=== PATIENT | female | born 1990 | race Caucasian/White ===

== ENCOUNTER 2020-08-29 07:23 | Emergency (ER) | payer MEDICAID, OTHER ==
[~2020-08-29] VITALS: Ht 172.7 cm; Wt 88.6 kg
[2020-08-29 07:37] VITALS: BP 135/87
== END 2020-08-29 09:53 | disposition home or self-care (01) ==
LOC: ER 07:23
DX: U07.1 COVID-19 (principal); B34.9 Viral infection, unspecified; R05 Cough; R07.89 Other chest pain; J45.909 Unspecified asthma, uncomplicated; Z98.890 Other specified postprocedural states; Z88.0 Allergy status to penicillin
CPT/HCPCS: 36415; 71045; 87635; 93005; 99285